=== PATIENT | male | born 2000 | race Caucasian/White ===

== ENCOUNTER 2021-07-09 09:18 | Outpatient (REF) | payer OTHER, SELFPAY ==
[2021-07-09 09:46] LABS: COVID-19 Test Negative (Negative)
== END 2021-07-09 09:19 | disposition home or self-care (01) ==
LOC: HO.LAB 09:18
PROVIDERS: Visit Provider Internal Medicine
DX: Z20.822 Contact with and (suspected) exposure to COVID-19 (principal)
CPT/HCPCS: 87635; C9803

== ENCOUNTER 2025-02-02 20:56 | Emergency (ER) | payer OTHER, SELFPAY ==
--- NOTE | ~2025-02-02 | XR_ITS ---
CLINICAL HISTORY: Pain 3 view left elbow Comparison: None provided Findings: No acute fractures or dislocations. No significant arthritic change or erosions. No joint effusion. No radiopaque foreign body. IMPRESSION: 1. No acute findings. This document has been electronically signed by: Karlo Aranda MD, PHD on 02/02/2025 23:40:07
[2025-02-02 20:59] VITALS: BP 136/70; PULSE 110; RESP 16; TEMP 36.7; O2SAT 97; BMI 49.3
--- NOTE | 2025-02-02 22:41 | ED_ITS ---
HPI - Extremity Problem General Chief complaint: Extremity Problem Stated complaint: Arm Pain/Issues Time Seen by Provider: 02/02/25 22:39 History of Present Illness ED Provider: Selene Mitchell NP HPI Narrative: 24-year-old male patient presents to the ED for evaluation complaining of left elbow pain ongoing for 3 days. Per mom, there was no traumatic injury to the elbow. The patient usually guards the left arm, and favors using in the right extremity only. However, she noted that there was some swelling of the left elbow ongoing for the past 3 days. Earlier today she reports it felt warm, but there was never redness. The patient denies any fever, chills. No limited range of motion. No chest pain, shortness of breath, difficulty breathing, abdominal pain. Related Data Allergies Allergy/AdvReac Type Severity Reaction Status Date / Time No Known Allergies Allergy Verified 02/02/25 21:00 Review of Systems Review of Systems: ROS is otherwise negative unless mentioned in HPI. [facility] Social History Social History Advance Directives: No Advance Directives Information Provided: No Physical Exam Exam: Exam: Nursing notes and vital signs reviewed. Constitutional: Well-appearing, NAD. Alert. Oriented X3. Eyes: EOMI. ENT: Pharynx normal. Neck: Normal inspection. Neck supple. CVS: Pulses normal. Respiratory: No respiratory distress. Skin: Skin warm and dry. Normal skin color. Extremities: No lower extremity edema. Left elbow with mild swelling. No redness. ROM intact. Neuro: Oriented X 3. No motor deficit. Vital Signs: Vital Signs: Last Vital Signs Temp 98.0 F 02/02/25 20:59 Pulse 110 H 02/02/25 20:59 Resp 16 02/02/25 20:59 BP 136/70 02/02/25 20:59 Pulse Ox 97 02/02/25 20:59 O2 Del Method Room Air 02/02/25 20:59 BMI result Body Mass Index 49.3 Medical Decision Making Medical Decision Making [facility] Narrative: 11:06 PM 02/02/2025 (Selene Mitchell NP): I evaluated this patient in the PIT area. The patient has a mild amount of swelling to left elbow, there is no redness, warmth. Possibly acute bursitis. There was no trauma, less likely underlying fracture. We will obtain x-ray and reassess. 12:06 AM 02/03/2025 (Selene Mitchell NP): X-ray shows no acute abnormality. I do not think this is any infection, there was no obvious bursitis on exam. I recommended compresses to the area if a comfortable, as well as an Jerry bandage, [id number] Tylenol use. Mom and patient are agreeable, expressed understanding with plan of care. Given return precautions to the ED. Differential Diagnosis Differential Diagnoses: The differential diagnosis associated with the presentation includes Fracture, dislocation, septic joint, bursitis Admission/Observation Consideration of admission/observation: Escalation of care including admission/observation considered (Not indicated) Independent Interpretation I performed an independent interpretation of an: Plain X-Ray Interpretation: I have reviewed the patient's imaging and agree with the radiologist's findings. Radiology Impression Discussion of test interpretation with radiology: I have reviewed the radiologist's reading. Radiologist Impression: XR Elbow IMPRESSION: 1. No acute findings. Independent Historian Clinical information obtained from an independent historian. History obtained from or confirmed by: Parent External Record Review None available Social Determinants Patient?s care significantly limited by Social Determinants of Health including: Problems related to primary support group Discharge Plan Discharge Clinical Impression: Elbow pain, left Patient Disposition: Home, Self-Care Instructions: Warm Compress or Soak (ED) Additional Instructions: X-ray shows no acute abnormality of the elbow. There was only a mild amount of swelling on exam. You may use a topical Jerry bandage to help with the discomfort, as well as [id number] Tylenol, ibuprofen. With any redness, pain, fevers, warmth, return back to the ED for further assessment. Referrals: Nati Stanton PA [Primary Care Provider, Internal Medicine] Print Language: Indian
[2025-02-03 00:19] VITALS: BP 123/60; PULSE 97; RESP 20; TEMP 36.4; O2SAT 95
--- OUTSIDE RECORDS SUMMARY | 2025-02-03 01:06 | XMS_ITS | Clinical Summary ---
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 Role Phone Omar Tyler MD Primary Care Provider Allergies No known active allergies Social History Tobacco Use Types Packs/Day Years Used Date Smoking Tobacco: Unknown Tobacco Cessation:Counseling Given: Not Answered Sex and Gender Information Value Date Recorded Sex Assigned at Not on file Legal Sex Male 1:13 PM EST Gender Identity Not on file Sexual Orientation Not on file Last Filed Vital Signs Vital Sign Reading Time Taken Comments Blood Pressure 104/61 03/04/2024 7:43 AM EST Pulse 81 03/04/2024 7:43 AM EST Temperature 36.9 C (98.4 F) 03/04/2024 7:43 AM EST Respiratory Rate 16 03/04/2024 4:57 AM EST Oxygen Saturation 95% 03/04/2024 7:43 AM EST Inhaled Oxygen Concentration - - Weight 86.2 kg (190 lb) 03/03/2024 8:35 PM EST Height 162.6 cm (5' 4 ) 03/03/2024 8:35 PM EST Body Mass Index 32.61 03/03/2024 8:35 PM EST Plan of Treatment Health Maintenance Due Date Last Done Comments Cholesterol Screening (Lipid Panel) 01/22/2022 HIV Screening 01/22/2022 Social Influencers of Health Screening 01/22/2022 Depression Screening 02/25/2024 COVID-19 Vaccine ( season) 2024 06/29/2021, 07/20/2020, 06/29/2020 Influenza Vaccine (#1) 2024 2, 05/19/2017, 05/13/2016, Additional history exists DTaP,Tdap,and Td Vaccines (8 - Td or Tdap) 06/06/2030 06/06/2020, 02/06/2011, 01/30/2005, Additional history exists RSV Immunization Adult Patients (1 - 1-dose 75+ series) 10/31/2074 Hepatitis B Vaccines Completed 08/13/2000, 1999, 1999 Pneumococcal Vaccine: Pediatrics (0 to 5 Years) and At-Risk Patients (6 to 49 Years) Aged Out 11/21/2000, 05/01/2000, 03/17/2000, Additional history exists No longer eligible based on patient's age to complete this topic HIB Vaccines Completed 02/03/2001, 09/2000, 03/17/2000, Additional history exists IPV Vaccines Completed 01/30/2005, 04/25, 03/17/2000, Additional history exists MMR Vaccines Completed 12/15/2006, 02/03/2001 Varicella Vaccines Completed 12/15/2006, 11/21/2000 Hepatitis A Vaccines Completed 03/19/2013, 03/17/19 13 HPV Vaccines Completed 05/10/2015, 08/25, 03/19/2013 Meningococcal ACWY Vaccine Completed 05/13/2016, Hepatitis C Screening Completed 03/03/2024 Meningococcal B Vaccine Aged Out No l onger eligible based on patient's age to complete this topic RSV Immunization Patients Under 20 months Aged Out No longer eligible based on patient's age to complete this topic Procedures Procedure Name Priority Date/Time Associated Diagnosis Comments HEPATITIS PANEL, ACUTE WITH REFLEX TO CONFIRMATION Add-On 03/03/2024 9:34 PM EST from Last 3 Months or Most Recently Relevant to Health Maintenance Results * Hepatitis panel, acute with reflex to confirmation (03/03/2024 9:34 PM EST) Hepatitis B Surface Ag Negative Negative LAB CHEMISTRY METHOD 03/04/2024 9:46 AM EST [facility] Hepatitis A Antibody IgM Negative Negative LAB CHEMISTRY METHOD 03/04/2024 9:46 AM EST [facility] Hep B Core IgM Negative Negative LAB CHEMISTRY METHOD 03/04/2024 9:46 AM EST [facility] Hepatitis C Antibody Negative Negative LAB CHEMISTRY METHOD 03/04/2024 9:46 AM EST [facility] Blood Venous blood specimen / Unknown Venipuncture / Unknown 03/03/2024 9:34 PM EST 03/03/2024 9:57 PM EST us Amina Braga MD LAB BLOOD ORDERABLES Fin al Result [facility] ([facility] [address] [place] [address], from Last 3 Months or Most Recently Relevant to Health Maintenance Insurance [facility] Care Teams 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
== END 2025-02-03 00:19 | disposition home or self-care (01) ==
PROVIDERS: Emergency Provider Emergency Medicine; PCP Physician Assistant Medical
DX: M25.522 Pain in left elbow (principal)
CPT/HCPCS: 73070; 99282; 99283

== ENCOUNTER → 2025-02-02 22:41 | Outpatient (BNV) | payer OTHER, SELFPAY | PROVIDERS: Emergency Provider Emergency Medicine; PCP Physician Assistant Medical; Visit Provider General Practice | DX: M25.522 Pain in left elbow (principal) | CPT/HCPCS: 73070 ==